=== PATIENT | female | born 1945 | race Caucasian/White ===

== ENCOUNTER 2022-04-23 13:24 | Outpatient (REF) | payer MEDICARE, SELFPAY ==
--- NOTE | 2022-04-23 11:22 | SKI_PTH ---
PATIENT: Charlie Tran LOC: [facility] U#:[id number] AGE/SX: 76/F ROOM: RE04/23/[address]: LUCIA Evans : 1945 BED: DIS: 04/23/2022 SPEC #: [id number] RECD: 04/23/22 16:03 STATUS: ZEV REQ #: [id number] SEBASTIEN: 04/23/22 11:[address]: Keith Villasenor DEPT: Surgical Specimen RECD BY: Gema Persaud ENTERED: 04/23/22 16:04 SP TYPE: SKI OTHR DR: Carmen Rogers Tissues: 1 - SKIN BIOPSY(SHAVE/PUNCH) Procedures: SKIN LEVEL 4 Comments: [id number]
--- OUTSIDE RECORDS SUMMARY | 2022-04-23 13:33 | XMS_ITS | Continuity of Care Document ---
:1945 Author Organization [facility] Address [address] [place] [address] Support Name Relationship Address Phone Pcp-Md Yan Primary Care Provider Unavailable Ever Nye Attending Provider [address] [place] [address] [facility] [place] [address] Allergies, Adverse Reactions, Alerts No allergy information available. Medications No medication information available. Problem List No problem information available. Procedures No known history of procedures. Relevant Diagnostic Tests and/or Laboratory Data No known relevant diagnostic tests, laboratory data, and/or discharge summary. Chief Complaint and Reason for Visit Encounter Admit Date Chief Complaint Reason for Visit Departed Referred August 31, 2019 2:50pm REFERRED- [facility] Hospital Discharge Instructions No known hospital discharge instructions. Encounters Encounter Facility Location Admit/Visit Discharge/Departure Atte nding Date Date Provider Departed . Cardiology August 31, August 31, 2019 Ever Fam Referred [facility] 2019 2:50pm 2:51pm Medical Center Functional Status No known functional status. Immunizations No known immunizations. Payers Payer Name Policy Type Covered Covered Libertarian Relationship Subscriber Subscriber Id Libertarian Id AARP Commercial SUEANNE [id number] Self / Same As SUEANNE 07 [id number] SUNG Patient SUNG Medicare Medicare SUEANNE [id number] Self / Same As SUEANNE [id number] A&B Primary SUNG Patient SUNG Self Pay Personal Payment (Madden - No Insurance) Plan of Care No Known Plan of Care Information Social History No known social history. Vital Signs No known vital signs results.
--- OUTSIDE RECORDS SUMMARY | 2022-04-23 13:34 | XMS_ITS | Continuity of Care Document ---
:1945 Author Organization [facility] Address [address] [place] [address] Phone Care Team Providers Name Role Phone Deb Alford Primary Care Provider Deb Alford Family Provider MD Ever Fam Attending Provider Chief Complaint and Reason for Visit Chief Complaint O/V Social History Smoking Status Status Start Date End Date Date of Observat ion Never smoked tobacco (finding) F ebruary 2019 1:07pm Additional Data Assigned Sex Female Problems Active Problems Medical Problem Onset Date Status Persistent atrial fibrillation Active Insurance Providers Guarantor Katrin Hdz Address [address] [facility] [address] Contact Info. Home Phone: Payer Policy Id Coverage Id Subscriber's Subscriber Effective Expi ration Name Id Date Date [facility] [id number] Katrin Tran [id number] Supplemental [employer] Medicare A&B [id number] Katrin Tran [id number] [place] Self Pay Self N/A Encounters Encounter Location(s) Arrival/Admit Date Discharge/Depart Date Provider(s) Departed [facility] February 19, 2022 February 19, 2022 1:06pm Carolyn Fam MD Clinical Medical 1:05pm Center-Cardiolog y Private
--- OUTSIDE RECORDS SUMMARY | 2022-04-23 13:34 | XMS_ITS | Encounter Summary ---
:1945 Author Care Team Providers Name Role Phone Deb Alford MD Primary Care Provider [phone] Carmen Rogers MD Primary Care Provider [phone] Ever Fam MD [place] Man [phone] Reason for Visit atrial fibrillation Assessment and Plan 1. Paroxysmal atrial fibrillation She has quite symptomatic paroxysmal at rial fibrillation despite flecainide. I first reviewed stroke risk and she has a CHADSVASc score of 6 so she should continue Eliquis. She had a TIA despite Eliqui s, which could easily have been atheroem bolic as cardioembolic, and aspirin was added to her Eliquis. Flecainide appears to have converted atr ial fibrillation to paroxysmal. She is disappointed that she is back in AF today and for the past 3 days. Her atrial fibrillation still appears relatively rare but has now recurred twice in the last four months with symptoms. We discu ssed options of rate control, increase f lecainide in an attempt to reduce AFib episodes, or catheter ablation. Given her symptoms and recurrence despite flecainide I recommend catheter ablation, and I d iscussed the risks of this procedure and gave her a handout. She is not yet ready to proceed with this and would like to continue to try treatment with flecainide. Therefore I will have her take 100 mg of flecainide this evening and then hankins ge her daily dose to 75 mg twice a day. She has a normal ejection fraction, good exercise capacity and no QRS widening at 107 beats per minute on today's EKG. I w arned her that if she continues to have symptoms or if the symptoms worsen she should not increase the dose and should contact me immediately. I asked her to call me if AFib does not resolve within one week and at that point we should readdre ss an atrial fibrillation ablation procedure. Likewise of atrial fibrillation continues to occur every 2-3 months or more I would more strongly recommend AFib abl ation procedure. She agrees to think abo ut it and will contact me if AFib episodes are more frequent. We discussed that if she progresses to persistent atrial fibrillation, success rates of both ablatio n and medications would start to decline significantly. Discussed restricting alcohol intake and aiming for 10-15 pound weight loss. ? electrocardiogram ? flecainide 50 mg tablet ? metoprolol tartrate 50 mg tablet 2. Essential hypertension Continue current medications as prescri bed. She says that home BPs generally 120s/70s which is at goal of < 130/80. L ow salt diet discussed. Mildly uncontrolled in office today but she admits to a grea t deal of stress. ? high blood pressure: care instruction s 3. Transient cerebral ischemia She had a TIA this spring despite takin g Eliquis. While there could be an atherosclerotic/ atheroembolic source, i ntensification of her anticoagulation regimen with the addition of low-dose aspirin to Eliquis is appropriate. She should continue high-dose atorvastatin. Discussion Note: None recorded. Plan of Care Reminders Provider Appointments Return to Office on or around Rajeev Oshea 02/19/2023 ? Established Patient 20 02/25/2023 10:40AM Jose Fam MD Lab None recorded. ? ? Referral None recorded. ? ? Procedures None recorded. ? ? Surgeries None recorded. ? ? Imaging Electrocardiogram 02/19/2022 In-House Ord er For [place] Provider Medications Name Start Date ? ? aspirin 81 mg tablet,delayed release ? Take 1 tablet every day by oral route. atorvastatin 80 mg tablet ? Take 1 tablet every day by oral route. chlorthalidone 25 mg tablet ? Take 1 tablet twice a day by oral route. curcumin (bulk) 100 % powder ? Taking 1 scoop orally once daily Eliquis 5 mg tablet ? Take 1 tablet twice a day by oral route. flecainide 50 mg tablet ? Take 1.5 tablets every 12 hours by oral route. levothyroxine 25 mcg tablet ? Take 1 tablet every day by oral route. losartan 100 mg tablet ? Take 1 tablet every day by oral route. metoprolol tartrate 100 mg tablet ? Take 0.5 tablets twice a day by oral route. omeprazole 20 mg capsule,delayed release ? Take 1 capsule every day by oral route as needed. Medications Administered None recorded. Vitals Height Weight BMI Blood Pressure 5 ft 6 in 204 lbs 32.9 kg/m2 140/90 mm[Hg] Results Lab Results None recorded. Allergies Code Code System Name Reaction Severity Onset NKDA ? ? ? Problems None recorded. Procedures Date Name Performed by ? 02/19/2022 Electrocardiogram In-House Order For Esme [place]aredes [place] [address] Vaccine List None recorded. Social History Tobacco Smoking Status Never Smoker Family History Relation Problem Onset Age of Age Notes Father Cerebrovascular accident (No Information) N/A (No Notes) Functional Status Unknown. Past Encounters 02/19/2022 Paroxysmal Atrial Fibrillation; [facility] l Hypertension; Transient Cerebral Ischemia Ever Fam MD: [address] [place] [phone], Ph. History of Present Illness Note: <div>She returns to EP clinic to follow up her persistent AF. She underwent cardioversion with flecainide initiation 09/24/19 but subsequently developed recurrent AF symptoms. She had paroxysmal AF despite the flecainide and when I saw her in 10/2019 we planned and AF ablation but due to the COVID-19 pandemic this was not performed. She has subsequenly had only rare episodes of AF.</div><div>She did suffer a TIA 10/2021 and was evaluated and worked up at [facility]. Aspirin was added to her Eliquis which she was taking at the time of the stroke.</div><div>No recurrent TIA/stroke symptoms. No bleeding issues on Eliquis/aspirin.</div><div>She had had AF at the time of her TIA in 10/2021 (lasted 7 days) and no recurrence until 3 days ago and she remains in AF today. Prior to October she had gone 6 months without any AF symptoms. She states that she is aware of her AF. SHe feels tired and fatigued, but can do all her regular activities, caring for her horses.</div><div>No lightheadedness, dizziness or syncope.</div><div>No dyspnea or chest pain. 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
</div><div>
</div> Review of Systems ? General Adult ROS Reported By: Patient Constitutional: Constitutional: no fever, no significant weight gain, no significant weight loss Respiratory: Respiratory: no shortness of breath Cardiovascular: Cardiovascular: no chest ramírez n, no arm pain on exertion, no shortness of breath when wal robert, no shortness of breath when lying down Gastrointestinal: GI: no blood in stools Genitourinary: Genitourinary: no hematuria Hematologic/Lymphatic: Hematologic/Lymphatic no eas y bruising Physical Exam ? ASHLEY Cardio basic Reported By: Patient Basic Cardio PE: General Appearance overweigh t. HEENT: no bruit. Lungs: clear to auscultation. Cardio: JVP < 6, s1 normal, s2 normal, no murmurs, no gallops, irregular rhythm. E xtremities: no edema, pulses 2+
--- OUTSIDE RECORDS SUMMARY | 2022-04-23 13:34 | XMS_ITS | Encounter Summary ---
:1945 Author Organization [facility] Address [address] [place] [address] Care Team Providers Name Role Phone Carmen Rogers MD Primary Care Provider Encounter Details Date Type Department Care Team Description 01/26/2022 Lab Requisition [facility] Tyrese Traylor for other Pathology & A, DO general examination Laboratory Medicine - [address], [place] [address] [facility] [place], [place] [address] Social History Tobacco Use Types Packs/Day Years Used Date Never Assessed Sex Assigned at Date Recorded Not on file documented as of this encounter Plan of Treatment Not on filedocumented as of this encounter Procedures Procedure Name Priority Date/Time Associated Diagnosis Comme nts SURGICAL PATHOLOGY Today 01/26/2022 11:10 Resul ts for this EDT procedure are i n the results section. documented in this encounter Results SURGICAL PATHOLOGY (01/26/2022 11:10 EDT) Note to Patient The following [facility] MEDICAL pathology results have CENTER been interpreted by LABORATORY your pathologist and SERVICES may be available to you before your health provider has had the opportunity to review them. Please allow time for your provider to receive these results and explore management options, if applicable. Final Diagnosis A. SKIN OF EAR, LEFT, PUNCH BIOPSY: [facility] MEDICAL - Squamous cell carcinoma in situ. CENTER - Lesion arising in association with actinic keratosis . LABORATORY - Follicular involvement not identified. 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 Attestation By the signature below, [facility] MEDICAL Elec tronically the attending physician CENTER sign ed by Sen, certifies that they LABORATORY Lucita Hylton MD on have 1) personally SERVICES 01/28/2022 at 0915 conducted a gross and/or microscopic examination of the described specimen(s), and/or personally interpreted the results of laboratory testing of the described specimen(s), and 2) personally rendered or confirmed the above diagnosis. Microscopic The stratum corneum is [facility] MEDICAL Description thickened by CENTER orthokeratosis and LABORATORY parakeratosis. The SERVICES epidermis is of variable thickness with areas of relative hyperplasia. The keratinocytes show a variable degree of nuclear atypia that focally involves the full thickness of the epidermis. There is nuclear enlargement, dispolarity and overlap. Mitotic figures are noted in superficial layers of the epidermis. The dermis is marked by solar elastosis, vascular ectasia, and a lymphohistiocytic infiltrate. Clinical History Skin lesion Lt ear [facility] Gross Description A. [facility] MEDICAL Received in formalin blanca d with proper patient identification (initials A, S) and not otherwise specified is a punch biopsy of pale white skin (0.4 cm in diameter and 0.3 cm in thickness). The cutane CENTER ous surface is scaly and slightly umbilicated. S ubmitted intact in A1. LABORATORY SERVICES CRYSTAL MONTOYA 01/27/2022 11:42 Performing Lab [facility] Scanned Images [facility] Specimen Tissue - Skin (tissue) specimen (specime n) Performing Organization Address City/State/ZIP Code Phon e Number [facility] [address] [place] [address] SERVICES documented in this encounter Visit Diagnoses Diagnosis Encounter for other general examination documented in this encounter Care Teams Spectroscopist Relationship Specialty Start Date End Date Carmen Rogers MD PCP - General 12/13/[address] [place] [id number] documented as of this encounter
--- OUTSIDE RECORDS SUMMARY | 2022-04-23 13:34 | XMS_ITS | Continuity of Care Document ---
:1945 Author Organization [facility] Address [address] [place] [address] Support Name Relationship Address Phone Pcp-Md Yan Family Provider Unavailable Unavailable Ever Fam Attending Provider [address] [facility] [phone] [facility] [address] [place] [address] Deb Alford Primary Care Provider [address] [phone] [place] [address] Allergies, Adverse Reactions, Alerts No allergy information available. Medications No medication information available. Problem List Active Problems Medical Problem Onset Date Status Persistent atrial fibrillation Active Procedures Procedure Date Status EKG Electrocardiogram October 19, 2019 completed Cardiac Exercise Stress Test October 19, 2019 completed Relevant Diagnostic Tests and/or Laboratory Data No known relevant diagnostic tests, laboratory data, and/or discharge summary. Chief Complaint and Reason for Visit Encounter Admit Date Chief Complaint Reason for Visit Departed Referred October 19, 2019 1:25pm F/U Hospital Discharge Instructions No known hospital discharge instructions. Encounters Encounter Facility Location Admit/Visit Discharge/Departure Atte nding Date Date Provider Departed St. Cardiology October 19, 2019 October 19, 2019 1:26pm Ever Oliveros [facility] 1:25pm Medical Center Departed St. Ep Lab September 24September 24, 2019 Ever Fam Surgical Day [facility] 2020 7:52am [facility] Functional Status No known functional status. Immunizations No known immunizations. Payers Payer Name Policy Type Covered Covered Republican Relationship Subscriber Subscriber Id Republican Id AARP Commercial SUEANNE [id number] Self / Same As SUEANNE 07 [id number] SUNG ALMARAZ Medicare Medicare SUEANNE [id number] Self / Same As SUEANNE [id number] A&B Primary ARNSANJUANITA Patient SUNG Self Pay Personal Payment (Madden - No Insurance) Plan of Care No Known Plan of Care Information Social History Query Response Start Date Stop Date Smoking Status Never smoker Vital Signs No known vital signs results.
--- OUTSIDE RECORDS SUMMARY | 2022-04-23 13:34 | XMS_ITS | Continuity of Care Document ---
:1945 Author Organization [facility] Address [address] [place] [address] Phone Support Name Relationship Address Phone SILVER LAIRD Sister UNKNOWN UNK, UN UNK Pcp-Md Yan Family Provider Unavailable Unavailable Ever Fam Attending Provider [address] [place] [address] [place] [address] Deb Alford Primary Care Provider [address] [place] [address] Allergies, Adverse Reactions, Alerts No allergy information available. Medications No medication information available. Problems Active Problems Medical Problem Onset Date Status Persistent atrial fibrillation Active Procedures Procedure Date Performed Status EKG Electrocardiogram October 19, 2019 completed Cardiac Exercise Stress Test October 19, 2019 completed Relevant Diagnostic Tests and/or Laboratory Data Diagnostic Imaging Reports Report Dictated Date/Time Dictated By Status Electrophysiology Report September 24, 2019 8:19am Ever Fam MD completed [facility] at [address] [id number] Patient Name: Katrin Cox [facility] al Record#: [id number] Address: [facility] JONATHAN GOEL City/State/Zip: [place] [address]: Ever sequeira MD Insurance: Medicare A&B /Age/Sex: 1945/74/F AARP Admit/Reg Date: 09/24/[address]: Kitty Fam MD Location: [facility].EP[facility]/ PCP: PcpMd Ronald Date of Service: 09/24/19 Order (s): EP Electrophysiology Order CPT Code: Report Number: [id number] Reason for Exam: AFIB Cardioversion Report Demographics Patient Name Marc fitch Female Date of 1945 Age 74 year(s ) EMR Number [id number] Account Number SE [id number] EP [employer] Ever Fam MD Date of Study 09/24/2019 Referring Physician(s) No PCP Procedure Procedure Type Cardioversion:External Cardioversion Indications Atrial fibrillation - persistent. Clinical Presentation Mrs. Almaraz is a 74 yo female patient w ho has persistent atrial fibrillation; patient was cardioverted back in June 2018 and felt much better with return to sinus rhythm. she has been on Eliquis and metoprolol since then. Here lately however patient experienced recurrence of her aFib and she noticed rapid heart rates on he r Cirrus Insight watch. She is symptomatic with palpitations and shortness of bear th. She is here today for a repeat cardioversion, this time however with a ddition of flecainide to increase her chances of maintaining sinus rhythm. Sh e has been adequately anticoagulated with eliquis. Procedure Description The patient was sedated with incrementa l IV Midazolam (Versed) and Sublimaze (Fentanyl). A total of 4 mg of IV midaz olam and 50 mcg of IV fentanyl were given. Using anterior posterior paddles , cardioversion proved successful with a 300J joule synchronized shock an d the patient's rhythm was converted to sinus. The patient was dismissed whe n fully awake. Conclusions Non-invasive/Misc. Summary Summary Successful cardioversion with return to sinus rhythm. Recommendations Patient will be discharged home once fu lly recovered from sedation. Continue flecainide BID dosing until follow up [place] Fam. Complications No procedural complications. Cardioversion Data Result The Cardioversion procedure was success ful. - DOUG procedure was not performed prior to the cardioversion procedure. Cardioversion attempts + +--------+--------+-------- -+---------+---------+--------+--------- --+--------- + !Pre-rhythm !Pre-rate!Shock !Impedance! Current !Patch !Waveform!Post-rhythm!Post-rate ! ! !(bpm) !(joules)!(ohms) !(amperes)!Po sition ! ! !(bpm) ! +-- +--------+--------+---------+- --------+---------+--------+ + --------- + !Atrial !85 !300 ! ! !Anterior ! !Perlita l !65 ! !fibrillation! ! ! ! !- ! !sinus ! ! ! ! ! ! ! !Posterior! !rhythm ! ! + +--------+--------+------- - -+---------+---------+--------+--------- --+--------- + Signatures Admission Data Admission Date: 09/24/2019 Admission Ti me: 07:52 Hospital Status:Outpatient. Procedure Data Procedure Date:09/24/2019Start:08:19 Dictated By: Ever Fam MD 09/24/19 081 9 Signed By: Ever Fam MD 09/24/19 1520 TD/TT: 09/24/19 0819Tech: HAL cc: YESICA; HAL* Ever Fam MD; Pcp-Md Yan Chief Complaint and Reason for Visit Chief Complaint F/U Encounters Encounter Location(s) Arrival/Admit Date Discharge/Depart Date Provider(s) Departed [facility] September 24, September 24, 2019 Jose Fam MD Surgical Day Medical 2019 7:52am Care Center-Ep Lab Departed [facility] October 19, 2019 October 19, 2019 Ever davis MD Referred Medical 1:25pm 1:26pm Center-Cardiolog y Private Assessments No Assessments Information Available Functional Status No Functional Status information available Goals Goals may be documented in an alternate section. Mental Status No Mental Status Information Available Medical Equipment No Medical Equipment Information available Insurance Providers Guarantor [facility]az [facility] Address [address] [place], [place] [address]R [facility] [address] Contact Info. Home Phone: Payer Policy Id Coverage Id Subscriber's Subscriber Id Effective E xpiration Name Date Date [facility] [id number] SONIA ALMARAZ [id number] Medicare [id number] SONIA ALMARAZ [id number] A&B Self Pay Self N/A Social History Smoking Status Status Date of Observation Never smoked tobacco (finding) September 24, 2019 1:0 7pm Assigned Sex Female
--- OUTSIDE RECORDS SUMMARY | 2022-04-23 13:34 | XMS_ITS | Clinical Summary ---
:1945 Author Organization [facility] Address [address] [place] [address] Care Team Providers Name Role Phone Carmen Rogers MD Primary Care Provider Encounters Date Type Specialty Care Team Description 01/26/2022 Lab Requisition Clinical Laboratory Tyrese Traylor for other A, DO general examina tion from Last 3 Months Social History Tobacco Use Types Packs/Day Years Used Date Never Assessed Sex Assigned at Date Recorded Not on file Plan of Treatment Health Maintenance Due Date Last Done Comments Hepatitis C Screen 1945 COVID-19 Vaccine (#1) 1949 Fall Risk Screening 2009 Procedures Procedure Name Priority Date/Time Associated Diagnosis Comme nts SURGICAL PATHOLOGY Today 01/26/2022 11:10 Resul ts for this EDT procedure are i n the results section. from Last 3 Months Results SURGICAL PATHOLOGY (01/26/2022 11:10 EDT) Note to Patient The following [facility] MEDICAL pathology results have CENTER been interpreted by LABORATORY your pathologist and SERVICES may be available to you before your health provider has had the opportunity to review them. Please allow time for your provider to receive these results and explore management options, if applicable. Final Diagnosis A. SKIN OF EAR, LEFT, PUNCH BIOPSY: UV M MEDICAL - Squamous cell carcinoma in situ. CENTER - Lesion arising in association with actinic keratosis . LABORATORY - Follicular involvement not identified. 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 Attestation By the signature below, [facility] MEDICAL Elec tronically the attending physician CENTER sign ed by Sen, certifies that they LABORATORY Lucita Hylton MD on have 1) personally SERVICES 01/28/2022 at 0915 conducted a gross and/or microscopic examination of the described specimen(s), and/or personally interpreted the results of laboratory testing of the described specimen(s), and 2) personally rendered or confirmed the above diagnosis. Microscopic The stratum corneum is [facility] MEDICAL Description thickened by CENTER orthokeratosis [...] Clinical History Skin lesion Lt ear [facility] LABORATORY SERVICES Gross Description A. [facility] MEDICAL Received in formalin blanca d with proper patient identification (initials A, S) and not otherwise specified is a punch biopsy of pale white skin (0.4 cm in diameter and 0.3 cm in thickness). The cutane CENTER ous surface is scaly and slightly umbilicated. S ubmitted intact in A1. LABORATORY SERVICES CRYSTAL MONTOYA 01/27/2022 11:42 Performing Lab [facility] LABORATORY SERVICES Scanned Images [facility] LABORAT[facility] SERVICES Specimen Tissue - Skin (tissue) specimen (specime n) Performing Organization Address City/State/ZIP Code Phon e Number [facility] [address] [place] [address] SERVICES from Last 3 Months Insurance Payer Benefit Plan Subscriber ID Effective Phone Address Typ e / Group Dates MEDICARE MEDICARE A/B [id number] 2009-Pres [address] ent [id number] [place] [address] [facility] [id number] 2021-Pres [phone] [address] Comm ercial [facility] ent [id number] [place] [address] Katrin Tran Personal/Family Self 1945 [address] [place] [address] Katrin Tran Personal/Family Self 1945 [address] [place] [address] Katrin Tran Personal/Family Self 1945 [address] ([address] [place] [address] Katrin Tran Personal/Family Self 1945 [address] ([address] [address] Care Teams 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
--- OUTSIDE RECORDS SUMMARY | 2022-04-23 13:34 | XMS_ITS ---
:1945 Author Care Team Providers Name Role Phone LYSSA FAM MD [employer] [phone] JOELLEN SUGGS MD Primary Care Provider [phone] RAND RUBIN MD Primary Care Provider [phone] Allergies Code Code System Name Reaction Severity Status Onset NKDA ? Medications Name Status Start Date Stop Date ? ? aspirin 81 mg tablet,delayed release Active ? Not available Take 1 tablet every day by oral route. atorvastatin 80 mg tablet Active ? Not av ailable Take 1 tablet every day by oral route. chlorthalidone 25 mg tablet Active ? Not available Take 1 tablet twice a day by oral route. curcumin (bulk) 100 % powder Active ? Not available Taking 1 scoop orally once daily Eliquis 5 mg tablet Active ? Not availabl e Take 1 tablet twice a day by oral route. flecainide 50 mg tablet Active ? Not avai lable Take 1.5 tablets every 12 hours by oral route. levothyroxine 25 mcg tablet Active ? Not available Take 1 tablet every day by oral route. losartan 100 mg tablet Active ? Not avail able Take 1 tablet every day by oral route. metoprolol tartrate 100 mg tablet Active ? Not available Take 0.5 tablets twice a day by oral route. metoprolol tartrate 50 mg tablet Active ? Not available Take 1 tablet twice a day by oral route. omeprazole 20 mg capsule,delayed release Active ? Not available Take 1 capsule every day by oral route as needed. Problems None recorded. Procedures Date Name Performed by ? 08/31/2019 Electrocardiogram In-House Order For Esme paredes Provider For Internal Use Onl y 08/31/2019 Exercise Stress Test [facility] Radiology Dept [address] [place] [address] (Work Place) 10/19/2019 Electrocardiogram In[place] [id number] 02/13/2021 Electrocardiogram In-House Order [place] [id number] 02/19/2022 Electrocardiogram [place] [id number] Results Lab Results Date Name Specimen Result Interpretation Description Value Range Status Address ? ? Electrocardiogram ? No observation recorded. ? ? ? In-House Order For Melyssa Pr ovider: For Internal U se Only ? Electrocardiogram ? No observation recorded. ? ? ? In-House Order For Melyssa Pr ovider: For Internal U se Only Past Encounters 02/19/2022 Paroxysmal Atrial Fibrillation; [facility] Hypertension; Transient Cerebral Ischemia Lyssa Fam MD: [address] [place] [address], Ph. 02/13/2021 Paroxysmal Atrial Fibrillation; [facility] Hypertension Lyssa Fam MD: [address] [place] [address], Ph. Social History Tobacco Smoking Status Never Smoker Vaccine List None recorded. Plan of Care Reminders Provider Appointments None recorded. ? ? Lab None recorded. ? ? Referral None recorded. ? ? Procedures None recorded. ? ? Surgeries None recorded. ? ? Imaging None recorded. ? ? Vitals 02/19/2022 01:20PM Established Patient 20 Height Weight BMI Blood Pressure 66 in 203 lbs 16 oz 32.9 kg/m2 140/90 mm[Hg] 02/13/2021 01:00PM Established Patient 20 Height Weight BMI Blood Pressure 66 in 210 lbs 33.9 kg/m2 (1) 136/94 mm[H g] (2) 132/82 mm[Hg ] 10/19/2019 02:00PM Established Patient 20 Height Weight BMI Blood Pressure 66 in 199 lbs 16 oz 32.3 kg/m2 (1) 147/57 mm[H g] (2) 138/80 mm[Hg ] 08/31/2019 11:20AM New Patient 40 Height Weight BMI Blood Pressure 66 in 199 lbs 16 oz 32.3 kg/m2 130/83 mm[Hg]
== END 2022-04-23 13:25 | disposition home or self-care (01) ==
LOC: LBN 13:24
PROVIDERS: PCP Internal Medicine; Visit Provider Physician Assistant
DX: H61.021 Chronic perichondritis of right external ear (principal); Z86.008 Personal history of in-situ neoplasm of other site
CPT/HCPCS: 88305

== ENCOUNTER 2025-02-27 16:18 | Inpatient (IN) | payer MEDICARE, SELFPAY ==
[2025-02-27] VITALS (74 sets, daily range): BP systolic 137–206; BP diastolic 51–86; PULSE 38–78; RESP 13–26; TEMP 36.3–36.9; O2SAT 94–97
--- NOTE | 2025-02-27 16:15 | RT.EKG_ITS ---
APPROVED REPORT Exam: Resting ECG Reason for Exam: Slurred Speech Patient Location: E HR:39 bpm ECG Measurements Heart Rate 39 AXIS MA [id number] P [id number] QRSd 104 QRS -26 QT 469 T 111 QTc 380 Conclusion Junctional rhythm...absent P waves, slow V-rate Inferior infarct, old...Q >35mS, II III aVF Consider anterior infarct...Q >30mS in V2-V5 Nonspecific T abnormalities, lateral leads...T <-0.10mV, I aVL V5 V6
--- NOTE | 2025-02-27 16:33 | W.ED.GENAD ---
Discharge Plan Disposition Patient Disposition: Admit to [facility] Condition: Improving Discharge Details Clinical Impression: Bradycardia, Syncope, PAF (paroxysmal atrial fibrillation), Hypomagnesemia, Acute renal failure Admit Date/Time: 02/27/25 22:17 Admit Provider: Douglas Schmid Attending Provider: Douglas Schmid Primary Care Provider: Carmen Rogers ED Provider: Shahid Barillas Discharge Data Discharge Date/Time-TO BE ENTERED AT DEPARTURE: 02/27/25 22:50 HPI General Date/Time Provider Initiated Documentation: 02/27/25 16:32. HPI Narrative: Patient presents emergency department brought in by the friend after she had an episode 1030 this morning where she was in a store this as she felt dizzy very weak and almost had a syncopal episode. She refused EMS to transport her to the hospital but her friends convinced her to come here for she has noted that her pulse has been low. Patient has a history of A-fib is supposed to undergo an ablation next month and is anticoagulated. Related Data Home Medications ?Medication ?Instructions ?Recorded ?Confirmed apixaban 5 mg tablet (Eliquis) 5 mg PO BID 02/27/25 02/27/25 atorvastatin 80 mg tablet 80 mg PO QPM 02/27/25 02/27/25 chlorthalidone 50 mg tablet 25 mg PO BID 02/27/25 02/27/25 flecainide 50 mg tablet 75 mg PO BID 02/27/25 02/27/25 levothyroxine 50 mcg tablet 50 mcg PO DAILY 02/27/25 02/27/25 losartan 100 mg tablet 100 mg PO DAILY 02/27/25 02/27/25 metoprolol tartrate 25 mg tablet 25 mg PO BID 02/27/25 02/27/25 omeprazole 20 mg capsule,delayed 20 mg PO DAILY 02/27/25 02/27/25 release zolpidem 10 mg tablet 10 mg PO QHS PRN 02/27/25 02/27/25 Allergies Allergy/AdvReac Type Severity Reaction Status Date / Time No Known Allergies Allergy Verified 02/27/25 17:27 General Stated Complaint: AMS/LOC FROYLAN: 3 Review of Systems Narrative: Review of Systems: Constitutional: No fevers, chills, sweats Eye: No recent visual problems ENT: No ear pain, nasal congestion, sore throat Respiratory: No shortness of breath, cough Cardiovascular: No Chest pain, palpitations, syncope Gastrointestinal: No nausea, vomiting, diarrhea Genitourinary: No hematuria Checo/Lymph: Negative for bruising tendency, swollen lymph glands Endocrine: Negative for excessive thirst, excessive hunger Musculoskeletal: No back pain, neck pain, joint pain, muscle pain, decreased range of motion Integumentary: No rash, pruritus, abrasions Neurologic: Alert & oriented X 4 Psychiatric: No anxiety, depression Exam Narrative Exam Narrative: Exam; vitals signs as reported above normal Constitutional; In no acute distress, afebrile General: cooperative, healthy appearing, comfortable and no acute distress HEENT: Head: normal to inspection, no palpable skull fracture and normocephalic atraumatic Eyes: : appearance normal, both eyes and all related structures EOM intact bilaterally Pupils: PERRL : conjunctiva normal Direct ophthalmoscopy: normal light reflex, normal conjunctiva, normal visual acuity Ears: Normal TM, normal external canal Nose: normal no rhinorreha Neck no JVD, supple non tender Neck: normal visual inspection, full ROM and no lymphadenopathy Chest: normal inspection of the chest Respiratory : normal respiratory effort and able to speak in complete sentences no wheezing no rales Cardio Rate: Bradycardic irregular regular rhythm normal heart sounds S1 and S2 no murmurs, gallops, or rubs GI : normal to inspection, normal bowel sounds, soft, non tender, non distended, no organomegaly Back/Spine/ no CVA tenderness Thoracic/Lumbar Spine: no tenderness or deformities Skin no rashes or lesions Neuro: patient alert oriented x 4 and no meningeal signs, Cranial Nerves: CN's II-XI intact bilaterally, Cognition: normal cognition, Speech: speech normal, Gait: normal gait, Depp tendon reflexes normal 2+ muscle strength 5/5 bilaterally Extremities, no edema, full range of motion, normal strength Course Vital Signs Vital signs: Vital Signs Temperature 36.9 C 02/27/25 16:21 Pulse 45 L 02/27/25 16:21 Respiratory Rate 18 02/27/25 16:21 Blood Pressure 137/75 02/27/25 16:21 Pulse Oximetry 96 02/27/25 16:21 Temperature 36.9 C 02/27/25 16:21 Temperature Source Oral 02/27/25 16:21 Pulse 45 L 02/27/25 16:21 Respiratory Rate 18 02/27/25 16:21 Blood Pressure 137/75 02/27/25 16:21 Pulse Oximetry 96 02/27/25 16:21 Oxygen Delivery Method Room Air 02/27/25 16:21 Oxygen Flow Rate 0 02/27/25 16:21 Pain Level 0 02/27/25 16:21 Medical Decision Making MDM: Summary: Patient presents to the emergency department after she was seen by EMS in the morning for an episode of presyncope and later found that her pulse was low and decided come to the emergency department. When she came to the ED her pulse was 39 with a blood pressure 130/70. EKG shows a junctional rhythm at a rate of 39 patient received IV hydration and labs and will place on telemetry and at point it looks like she was having third-degree AV block but then reverted back to normal sinus rhythm after 1 L of normal saline. Patient has a history of atrial fibrillation and at times has rapid A-fib and after obtaining her medication we saw that she takes flecainide and metoprolol which could have been the culprit of this bradycardia arrhythmia. I spoke with her doctors in [place] but they were not sure for her primary marble cleaner was out of town called [facility] spoke with cardiology Dr. Gavin who states that if the patient has improved to monitor here and if needed she will be transferred but they recommend stopping the flecainide and metoprolol at this time patient now feels better and she will be admitted to the hospital CT scan that was done which is negative the only abnormalities her BUN is 54 and her creatinine is 2.0 this probably also is due to dehydration Data Review Analysis All the data on this patient was reviewed by me including laboratory and imaging studies as well as bedside studies performed by me Independent review of Studies Imaging CT head was negative for stroke Lab: Labs as reported above show an elevated BUN to creatinine ratio Risk Stratification: Patient with a junctional rhythm dehydration and acute renal failure who will need to be admitted to the hospital for further monitoring Differential Diagnosis: 1. Bradycardia arrhythmia 2. Third-degree AV block 3. Syncope 4. CVA 5. Acute kidney injury Consultants: Consulted with Dr. Merino and a doctor at [facility] as well as the hospitalist will admit the patient to the hospital Shared disposition: Patient is since need to be admitted and will do accordingly Impression: Medical Records Medical records reviewed: Yes I reviewed the patient's medical records. Lab Data Lab results reviewed: Yes I reviewed the patient's lab results. ECG Data Attestation: I personally reviewed and interpreted this ECG (s) as follows: Prior ECG tracings: available for review Interpretation: Junctional rhythm heart rate [address]-T changes Quality:SDOH Health Related Social Needs: Health related social needs education Health related social needs details not applicable at this time. 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
[2025-02-27 16:55] LABS: Abs Immature Grans 0.09 10^3/uL (0.0-0.06); HCT 41.2 % (36.0-46.0); HGB 13.2 g/dL (11.2-15.7); Immature Grans % 0.8 %; MCH 32.0 pg (27.0-33.0); MCHC 32.0 % (32.0-36.0); MCV 100 fL (80-95); MPV 10.1 fL (8.0-11.0); Platelet Count 252 10^3/uL (130-400); RBC 4.12 10^6/uL (3.93-5.22); RDW 12.9 % (11.7-14.6); RDW-SD 47.3 fL; WBC 10.79 10^3/uL (4.4-10.8)
[2025-02-27 17:13] LABS: ALT 36 U/L (14-59); AST 28 U/L (15-37); Albumin 3.6 g/dL (3.4-5.0); Alkaline Phosphatase 83 U/L (46-116); Anion Gap 16.4 mmol/L (3-11); BUN 55 mg/dL (7-18); Bilirubin, Total 0.4 mg/dL (0.2-1.0); CO2 20.6 mmol/L (21.0-32.0); Calcium 9.8 mg/dL (8.5-10.1); Chloride 103 mmol/L (98-107); Estimated GFR 20.96 (mL/min/1.73m2); Glucose 224 mg/dL (74-106); Magnesium 1.7 mg/dL (1.8-2.4); Potassium 3.8 mmol/L (3.5-5.1); Sodium 140 mmol/L (136-145); Total Protein 7.4 g/dL (6.4-8.2); Troponin I 16 ng/L (<or=51)
[2025-02-27] MEDS: Normal Saline 1,000 ML 1000 ML IV (17:42)
--- NOTE | 2025-02-27 18:00 | DI.CT_ITS ---
Exam(s) CT HEAD WO EXAM: CT HEAD WO CLINICAL HISTORY: presyncope. TECHNIQUE: Imaging Protocol: Axial computed tomography images with coronal and sagittal reformatted images were created and reviewed COMPARISON: No exams were available for comparison FINDINGS: There are no skull fractures. There is no fluid in the visualized paranasal sinuses. There is no evidence of intracranial hemorrhage, mass effect, or shift of midline structures. There are no extra-axial fluid collections. The ventricles are not enlarged or shifted and there is no blood within the ventricular system nor within the basal cisterns. There is some mild bilateral and symmetrical periventricular hypodensity consistent with chronic small vessel disease IMPRESSION: No acute intracranial findings on this noninfused CT scan of the brain. Bilateral small vessel white matter periventricular disease. No evidence of obvious acute territorial infarct. No hemorrhage. If clinically indicated follow-up MRI can be performed. Report called by myself to ER provider 02/27/2025 at 7:17 p.m. RADIATION DOSE DELIVERED: 931.81mGy.cm Total DLP DATA REPOSITORY: All CT scans at this facility are submitted to the National Radiology Data Registry (NRDR) Dose Index Registry (DIR) with the [employer] (ACR). RADIATION OPTIMIZATION: All CT scans at this facility use at least one of these dose optimization techniques: automated exposure control; mA and/or kV adjustment per patient size (includes targeted exams where dose is matched to clinical indication); or iterative reconstruction.
[2025-02-27 18:06] LABS: Troponin I 16 ng/L (<or=51)
--- NOTE | 2025-02-27 19:30 | RT.EKG_ITS ---
APPROVED REPORT Exam: Resting ECG Reason for Exam: nel Patient Location: E HR:61 bpm ECG Measurements Heart Rate 61 AXIS TX 97 P 0 QRSd 113 QRS -27 QT 492 T 103 QTc 494 Conclusion Sinus rhythm...normal P axis, V-rate 60- 99 Incomplete left bundle branch block...QRSd>110mS, terminal axis(-90,-1) Low voltage, precordial leads...precordial leads <1.0mV
[2025-02-27 20:13] LABS: Troponin I 17 ng/L (<or=51)
--- NOTE | 2025-02-27 20:59 | W.PM.HP.N ---
Date of service: 02/27/25 Time of Service: 20:59 Assessment and Plan Assessment and plan (1) Hypotension due to drugs: Start date: 02/27/25 Status: Acute Assessment and plan: This is an 79-year-old lady with recent onset of dizziness and near syncopal episode the day of presentation presenting with bradycardia and hypotension with paroxysmal atrial fibrillation and planned ablation in April of this year with [place] inspector materials and processes. She is symptomatic with her atrial fibrillation and with her recent episode she appeared to have junctional bradycardia in the ED. She did respond to fluids and her medications were held with a hypertensive response in the ED. She did receive 1 small dose of metoprolol and had recurrent bradycardia but not hypotension. She will be observed overnight trending troponins and software project engineer. She may need pacemaker. ZOLL pads are in place. Because of her persistent bradycardia into the 30s she was moved to the ICU level care. Metoprolol will be held along with flecainide and chlorthalidone. Echocardiogram will be updated. She is a full code. (2) Bradycardia: Start date: 02/27/25 Status: Acute Assessment and plan: Patient is having bradycardia secondary to her medications and there may be a conduction disorder though there is no true heart block. She now is in junctional bradycardia converting to sinus bradycardia off metoprolol entirely. Consult cardiology and her inspector materials and processes team in [place] as to need for immediate attention versus long-term potential for possible pacemaker. Also she needs her meds adjusted hoping not to allow paroxysmal atrial fibrillation and rapid response which may be problematic as well. (3) Hypomagnesemia: Start date: 02/28/25 Status: Acute Assessment and plan: Replete with IV magnesium and follow-up lab. (4) Acute hyperglycemia: Start date: 02/27/25 Status: Acute Assessment and plan: Patient has glucose measurements over 200 and will be on glucometer measurements before meals and at bedtime with sensitive sliding scale coverage while hospitalized. She has no history of diabetes. (5) PAF (paroxysmal atrial fibrillation): Status: Chronic Assessment and plan: Patient states that she has only 13 to 15% atrial fibrillation on her heart monitoring with her watch. She does have planned ablation in April of this year. She may need more immediate attention from her team in [place] with her present symptoms and bradycardia. (6) Hypothyroidism (acquired): Status: Chronic Assessment and plan: Continue outpatient supplement. This appears to be stable. (7) Hyperlipidemia: Status: Chronic Assessment and plan: Continue outpatient medical therapy. (8) HTN (hypertension): Status: Chronic Assessment and plan: Hold all of her medicines except for losartan which will be half dose. Gentle IV hydration has taken place. History of Present Illness History of Present Illness Chief Complaint: Dizziness and weakness with near syncopal episode. Narrative: This is an 79-year-old female patient who receives most of her cardiology care in [place] seen Dr. Schulz who is a inspector materials and processes. She has chronically been on metoprolol and flecainide with only rare atrial fibrillation which would have a heart rate in the 110-120 range by her watch and phone monitoring. She is very sensitive to her atrial fibrillation and it is scheduled for an ablation in April 2025. She had a near syncopal episode while shopping with her friend I did not want to be seen in the ED but was encouraged by her friend go to the emergency room for evaluation with patient arriving via EMS. She continued to have dizziness and in the ED was found to have a junctional bradycardia. She did have paroxysmal atrial fibrillation with a controlled rate and was not severely hypotensive but actually was hypertensive compared to her baseline. She was given the very small dose of Toprol tartrate just after being admitted to the floor and began to have severe bradycardia below 40 sometimes dipping below 30 without symptoms of hypotension while lying in bed but the patient could feel her heart skipping. She had no chest pain. She denied any peripheral edema. No true syncopal episodes but has felt slightly dizzy in the past. She was transferred to the ICU from the [facility] because of her persistent bradycardia. Her metoprolol, flecainide and chlorthalidone were held. The patient blood pressure was well-controlled on only a half dose of losartan. She was essentially asymptomatic except for her sensations of slow heart rate and skipped beats with one 5-second pause seen on the telemetry. Her troponins were negative and her EKGs were unrevealing for ischemia. Plans are to observe off medications to washout her flecainide and metoprolol especially. The patient did return from a junctional bradycardia to the sinus bradycardia. Her global marketing coordinator and inspector materials and processes should be contacted in the morning to discuss possible further evaluation at [facility] which is a closer facility for consideration of pacemaker if needed. Her other chronic medical problems appear to be stable with patient's TSH slightly suppressed with a normal free T4. She is a full code. Review of Systems Narrative: 13 point review of systems otherwise unrevealing or stable. 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 Social History Smoking/Tobacco Use Status: Never Smoking risk assessment performed?: Yes Alcohol Intake: current Alcohol Intake frequency: a few times a week Substance use type: does not use Housing: house Do you feel safe at home: Yes Do you feel safe in your relationship?: Yes Meds Allergies and Home Medications Allergies Allergy/AdvReac Type Severity Reaction Status Date / Time No Known Allergies Allergy Verified 02/27/25 17:27 Home Medications ?Medication ?Instructions ?Recorded ?Confirmed ?Type apixaban 5 mg tablet (Eliquis) 5 mg PO BID 02/27/25 02/27/25 History atorvastatin 80 mg tablet 80 mg PO QPM 02/27/25 02/27/25 History chlorthalidone 50 mg tablet 25 mg PO BID 02/27/25 02/27/25 History flecainide 50 mg tablet 75 mg PO BID 02/27/25 02/27/25 History levothyroxine 50 mcg tablet 50 mcg PO DAILY 02/27/25 02/27/25 History losartan 100 mg tablet 100 mg PO DAILY 02/27/25 02/27/25 History metoprolol tartrate 25 mg tablet 25 mg PO BID 02/27/25 02/27/25 History omeprazole 20 mg capsule,delayed 20 mg PO DAILY 02/27/25 02/27/25 History release zolpidem 10 mg tablet 10 mg PO QHS PRN 02/27/25 02/27/25 History Exam Narrative Exam Narrative: General: Patient appears appropriate for age, moderately obese, alert and oriented x 3 and in no acute distress. HEENT: Normocephalic, eyes with pupils equal and reactive to light symmetrically, extraocular movement intact and sclera anicteric. Oropharynx with moist mucosa and fair dentition. Neck: Supple without JVD. Back: Kyphotic without CVA tenderness. Lungs: Aeration and clear to auscultation and percussion with no focalizing rales or rhonchi. No expiratory wheeze. Breast: Exam deferred. Heart: Bradycardic rate with irregular rhythm, no appreciable murmur or gallop. Abdomen: Obese contour, soft and nontender to palpation with no palpable hepatosplenomegaly. Genitalia/rectal: Exam deferred. Extremities: Without clubbing, cyanosis or pitting edema. Good cap refill. Skin: Normal color, warm and dry. Neuro: Nerves II to XII gross intact, no focalized motor deficits or tremor. Psych: Normal affect and mood. No abnormal thought processes. Remote and recent memory intact. Results Imaging Imaging Studies: EXAM: CT HEAD WO CLINICAL HISTORY: presyncope. TECHNIQUE: Imaging Protocol: Axial computed tomography images with coronal and sagittal reformatted images were created and reviewed COMPARISON: No exams were available for comparison FINDINGS: There are no skull fractures. There is no fluid in the visualized paranasal sinuses. There is no evidence of intracranial hemorrhage, mass effect, or shift of midline structures. There are no extra-axial fluid collections. The ventricles are not enlarged or shifted and there is no blood within the ventricular system nor within the basal cisterns. There is some mild bilateral and symmetrical periventricular hypodensity consistent with chronic small vessel disease IMPRESSION: No acute intracranial findings on this noninfused CT scan of the brain. Bilateral small vessel white matter periventricular disease. No evidence of obvious acute territorial infarct. No hemorrhage. If clinically indicated follow-up MRI can be performed. Labs 02/28/25 06:21 02/28/25 06:21 Labs: Laboratory Results - last 24 hr 02/27/25 02/27/25 02/27/25 16:37 17:38 19:36 WBC 10.79 RBC 4.12 Hgb 13.2 Hct 41.2 MCV 100 H MCH 32.0 MCHC 32.0 RDW 12.9 Plt Count 252 MPV 10.1 Immature Gran % 0.8 Neutrophils % 74.4 Lymphocytes % 17.2 Monocytes % 6.5 Eosinophils % 0.7 Basophils % 0.4 Nucleated RBC % 0.0 Absolute Neutrophils 8.02 H Absolute Lymphocytes 1.86 Absolute Monocytes 0.70 Absolute Eosinophils 0.08 Absolute Basophils 0.04 Sodium 140 Potassium 3.8 Chloride 103 Carbon Dioxide 20.6 L Anion Gap 16.4 H BUN 55 H Creatinine 2.3 H Est GFR (CKD-EPI 2020) 20.96 Glucose 224 H Calcium 9.8 Magnesium 1.7 L Total Bilirubin 0.4 AST 28 ALT 36 Alkaline Phosphatase 83 Troponin I 16 16 17 Total Protein 7.4 Albumin 3.6 Last Vital Signs Temp 36.9 C 02/27/25 16:21 Pulse 57 L 02/27/25 20:31 Resp 16 02/27/25 20:31 BP 191/67 H 02/27/25 20:31 Pulse Ox 95 02/27/25 20:31 Time Spent Time spent with Patient: >75 minutes Time was spent: preparing to see the patient(eg.review tests), obtaining and/or reviewing separately otained hiistory, ordering medications,tests, procedures, indepentently interpreting results, counseling the patient and care coordination
--- NOTE | 2025-02-27 22:49 | W.PC.ACHO ---
Registration Status: REG ER Primary Language: Preferred Language: ED Information & Data Chief Complaint AMS/LOC 02/27/25 16:34 Triage Note pt woke this am feeling fine 02/27/25 16:21 pt states she thinks she might have passed out or had TIA pt states symptoms have resolved Most Recent Vital Signs Temperature 36.9 C 02/27/25 16:21 Temperature Source Oral 02/27/25 16:21 Pulse 52 L 02/27/25 22:02 Pulse 52 L 02/27/25 22:02 Respiratory Rate 19 02/27/25 22:02 Respiratory Effort Normal 02/27/25 16:37 Respiratory Depth Normal 02/27/25 16:37 Respiratory Pattern Normal 02/27/25 16:37 Blood Pressure 155/61 H 02/27/25 22:02 Blood Pressure Mean 93 02/27/25 22:02 Pulse Oximetry 96 02/27/25 22:02 Oxygen Delivery Method Room Air 02/27/25 16:21 Oxygen Flow Rate 0 02/27/25 16:21 Pain Level 0 02/27/25 16:21 Allergies No Known Allergies Allergy (Verified 02/27/25 17:27) IV IV Catheter Type [Right Peripheral IV Antecubital] IV Catheter Gauge [Right 18 Antecubital] Diagnostics 02/27/25 02/27/25 02/27/25 Range/Units 22:23 19:36 17:38 WBC (4.4-10.8) 10^3/uL RBC (3.93-5.22) 10^6/uL Hgb (11.2-15.7) g/dL Hct (36.0-46.0) % MCV (80-95) fL MCH (27.0-33.0) pg MCHC (32.0-36.0) % RDW (11.7-14.6) % Plt Count (130-400) 10^3/uL MPV (8.0-11.0) fL Immature Gran % % Neutrophils % % Lymphocytes % % Monocytes % % Eosinophils % % Basophils % % Nucleated RBC % (0.0-0.3) % Absolute Neutrophils (1.2-6.7) 10^3/uL Absolute Lymphocytes (1.2-3.4) 10^3/uL Absolute Monocytes (0.1-0.8) 10^3/uL Absolute Eosinophils (0.0-0.7) 10^3/uL Absolute Basophils (0.0-0.2) 10^3/uL Sodium (136-145) mmol/L Potassium (3.5-5.1) mmol/L Chloride (98-107) mmol/L Carbon Dioxide (21.0-32.0) mmol/L Anion Gap (3-11) mmol/L BUN (7-18) mg/dL Creatinine (0.55-1.02) mg/dL Est GFR (CKD-EPI 2020) (mL/min/1.73m2) Glucose (74-106) mg/dL Calcium (8.5-10.1) mg/dL Magnesium (1.8-2.4) mg/dL Total Bilirubin (0.2-1.0) mg/dL AST (15-37) U/L ALT (14-59) U/L Alkaline Phosphatase (46-116) U/L Troponin I 17 16 (<or=51) ng/L Total Protein (6.4-8.2) g/dL Albumin (3.4-5.0) g/dL COVID-19 Source Pending SARS-CoV-2 (PCR) Pending Influenza Type A (PCR) Pending Influenza Type B (PCR) Pending RSV (PCR) Pending 02/27/25 Range/Units 16:37 WBC 10.79 (4.4-10.8) 10^3/uL RBC 4.12 (3.93-5.22) 10^6/uL Hgb 13.2 (11.2-15.7) g/dL Hct 41.2 (36.0-46.0) % MCV 100 H (80-95) fL MCH 32.0 (27.0-33.0) pg MCHC 32.0 (32.0-36.0) % RDW 12.9 (11.7-14.6) % Plt Count 252 (130-400) 10^3/uL MPV 10.1 (8.0-11.0) fL Immature Gran % 0.8 % Neutrophils % 74.4 % Lymphocytes % 17.2 % Monocytes % 6.5 % Eosinophils % 0.7 % Basophils % 0.4 % Nucleated RBC % 0.0 (0.0-0.3) % Absolute Neutrophils 8.02 H (1.2-6.7) 10^3/uL Absolute Lymphocytes 1.86 (1.2-3.4) 10^3/uL Absolute Monocytes 0.70 (0.1-0.8) 10^3/uL Absolute Eosinophils 0.08 (0.0-0.7) 10^3/uL Absolute Basophils 0.04 (0.0-0.2) 10^3/uL Sodium 140 (136-145) mmol/L Potassium 3.8 (3.5-5.1) mmol/L Chloride 103 (98-107) mmol/L Carbon Dioxide 20.6 L (21.0-32.0) mmol/L Anion Gap 16.4 H (3-11) mmol/L BUN 55 H (7-18) mg/dL Creatinine 2.3 H (0.55-1.02) mg/dL Est GFR (CKD-EPI 2020) 20.96 (mL/min/1.73m2) Glucose 224 H (74-106) mg/dL Calcium 9.8 (8.5-10.1) mg/dL Magnesium 1.7 L (1.8-2.4) mg/dL Total Bilirubin 0.4 (0.2-1.0) mg/dL AST 28 (15-37) U/L ALT 36 (14-59) U/L Alkaline Phosphatase 83 (46-116) U/L Troponin I 16 (<or=51) ng/L Total Protein 7.4 (6.4-8.2) g/dL Albumin 3.6 (3.4-5.0) g/dL COVID-19 Source SARS-CoV-2 (PCR) Influenza Type A (PCR) Influenza Type B (PCR) RSV (PCR) Intake and Output - 24 Hour Total 02/27/25 16:18 thru 02/27/25 18:49 Intake Total 1000 Balance 1000 Weight 88.451 kg Intake: IV 1000 Falls Risk Assessment History of Falls No History 02/27/25 16:37 Contributing Factors No Factors 02/27/25 16:37 Ambulatory Aids Independent 02/27/25 16:37 Tubes/Lines None 02/27/25 16:37 Gait Evaluation No gait disturbance 02/27/25 16:37 Cognition No cognitive impairment 02/27/25 16:37 Fall Total Score 0 02/27/25 16:37 Level of Risk Standard/Low Risk 02/27/25 16:37 Problems (Last Reviewed 02/27/25 @ 16:34 by Shahid Barillas MD) Hypotension due to drugs (Acute) PAF (paroxysmal atrial fibrillation) (Chronic) HTN (hypertension) (Chronic) Hyperlipidemia (Chronic) Hypothyroidism (acquired) (Chronic) Bradycardia (Acute) v v v v v v v v v Sending and/or Receiving Nurses: Please use comment section below to note any information pertinent to the patient hand-off not included above. Information / Comments: Report taken from ED RN Brooks, Patient is AO, brought to ER w/ dizziness and weakness.prior to that she had near syncopal episode, slurred speech , refused to EMS. On assessment she had junctional rythm, denied of chest pain and SOB, converted to sinus nel. ambulates to toilet independently. Was given NS 1 L as bolus. has g.18 on rt. AC. All questions answered appropriately. Report received from:
[2025-02-27 23:15] LABS: COVID-19 PCR Negative (Negative); RSV PCR Negative (Negative)
[2025-02-27] MEDS: Metoprolol 12.5 MG TAB PO (23:33)
[2025-02-27] MEDS: Zolpidem 10 MG TAB PO (23:33)
[2025-02-28] VITALS (53 sets, daily range): BP systolic 108–167; BP diastolic 43–73; PULSE 29–66; RESP 11–25; TEMP 36–36.7; O2SAT 89–97
[2025-02-28] MEDS: Normal Saline Flush 10 ML SYR IVP ×2 (00:03→07:41)
[2025-02-28] MEDS: MAGNESIUM SULFATE 2 GM/50 ML BAG IV_INF (00:04)
[2025-02-28 00:26] LABS: TSH (W/Ref FT4) 2.04 uIU/mL (0.36-3.74)
--- NOTE | 2025-02-28 04:51 | W.PC.ACHO ---
Registration Status: ADM IN Primary Language: Preferred Language: ED Information & Data Chief Complaint AMS/LOC 02/27/25 16:34 Triage Note pt woke this am feeling fine 02/27/25 16:21 pt states she thinks she might have passed out or had TIA pt states symptoms have resolved Most Recent Vital Signs Temperature 36 C L 02/28/25 01:50 Temperature Source Temporal Artery Scan 02/28/25 01:50 Pulse 38 L 02/28/25 01:50 Pulse Rhythm Irregular 02/27/25 22:59 Pulse 57 L 02/27/25 22:46 Respiratory Rate 18 02/28/25 01:50 Respiratory Effort Normal 02/27/25 22:59 Respiratory Depth Normal 02/27/25 16:37 Respiratory Pattern Normal 02/27/25 16:37 Blood Pressure 124/66 02/28/25 01:50 Blood Pressure Mean 85 02/28/25 01:50 Pulse Oximetry 96 02/28/25 01:50 Oxygen Delivery Method Room Air 02/28/25 01:50 Oxygen Flow Rate 0 02/28/25 01:50 Pain Level 0 02/28/25 01:50 Allergies No Known Allergies Allergy (Verified 02/27/25 17:27) Active Medications Generic Name Dose Route Start Last Admin Trade Name Freq PRN Reason Stop Dose Admin Metoprolol Tartrate 12.5 mg 02/28/25 00:00 02/27/25 23:33 Metoprolol 12.5 Mg Tab PO 12.5 mg Q8H SEVEN Administration Sodium Chloride 0 ml 02/27/25 22:56 02/28/25 00:03 Normal Saline Flush 10 Ml Syr IVP 10 ml PRN PRN Administration Zolpidem Tartrate 10 mg 02/27/25 22:56 02/27/25 23:33 Zolpidem 10 Mg Tab PO 10 mg HS PRN PRN Administration IV IV Catheter Type [Right Saline Lock Antecubital] IV Catheter Gauge [Right 18 Antecubital] Diet Orders Category Date Time Status Diabetes Consistent CHO/Heart Healthy [DIET] Nutrition 02/28/25 Breakfast Active Diagnostics 02/28/25 02/27/25 02/27/25 Range/Units 05:35 22:23 19:36 WBC Pending (4.4-10.8) 10^3/uL RBC Pending (3.93-5.22) 10^6/uL Hgb Pending (11.2-15.7) g/dL Hct Pending (36.0-46.0) % MCV Pending (80-95) fL MCH Pending (27.0-33.0) pg MCHC Pending (32.0-36.0) % RDW Pending (11.7-14.6) % Plt Count Pending (130-400) 10^3/uL MPV Pending (8.0-11.0) fL Immature Gran % % Neutrophils % % Lymphocytes % % Monocytes % % Eosinophils % % Basophils % % Nucleated RBC % (0.0-0.3) % Absolute Neutrophils (1.2-6.7) 10^3/uL Absolute Lymphocytes (1.2-3.4) 10^3/uL Absolute Monocytes (0.1-0.8) 10^3/uL Absolute Eosinophils (0.0-0.7) 10^3/uL Absolute Basophils (0.0-0.2) 10^3/uL Sodium Pending (136-145) mmol/L Potassium Pending (3.5-5.1) mmol/L Chloride Pending (98-107) mmol/L Carbon Dioxide Pending (21.0-32.0) mmol/L Anion Gap Pending (3-11) mmol/L BUN Pending (7-18) mg/dL Creatinine Pending (0.55-1.02) mg/dL Est GFR (CKD-EPI 2020) Pending (mL/min/1.73m2) Glucose Pending (74-106) mg/dL Calcium Pending (8.5-10.1) mg/dL Magnesium Pending (1.8-2.4) mg/dL Total Bilirubin Pending (0.2-1.0) mg/dL AST Pending (15-37) U/L ALT Pending (14-59) U/L Alkaline Phosphatase Pending (46-116) U/L Troponin I 17 (<or=51) ng/L Total Protein Pending (6.4-8.2) g/dL Albumin Pending (3.4-5.0) g/dL TSH 2.04 (0.36-3.74) uIU/mL COVID-19 Source Nasopharynx SARS-CoV-2 (PCR) Negative (Negative) Influenza Type A (PCR) Negative (Negative) Influenza Type B (PCR) Negative (Negative) RSV (PCR) Negative (Negative) 02/27/25 02/27/25 Range/Units 17:38 16:37 WBC 10.79 (4.4-10.8) 10^3/uL RBC 4.12 (3.93-5.22) 10^6/uL Hgb 13.2 (11.2-15.7) g/dL Hct 41.2 (36.0-46.0) % MCV 100 H (80-95) fL MCH 32.0 (27.0-33.0) pg MCHC 32.0 (32.0-36.0) % RDW 12.9 (11.7-14.6) % Plt Count 252 (130-400) 10^3/uL MPV 10.1 (8.0-11.0) fL Immature Gran % 0.8 % Neutrophils % 74.4 % Lymphocytes % 17.2 % Monocytes % 6.5 % Eosinophils % 0.7 % Basophils % 0.4 % Nucleated RBC % 0.0 (0.0-0.3) % Absolute Neutrophils 8.02 H (1.2-6.7) 10^3/uL Absolute Lymphocytes 1.86 (1.2-3.4) 10^3/uL Absolute Monocytes 0.70 (0.1-0.8) 10^3/uL Absolute Eosinophils 0.08 (0.0-0.7) 10^3/uL Absolute Basophils 0.04 (0.0-0.2) 10^3/uL Sodium 140 (136-145) mmol/L Potassium 3.8 (3.5-5.1) mmol/L Chloride 103 (98-107) mmol/L Carbon Dioxide 20.6 L (21.0-32.0) mmol/L Anion Gap 16.4 H (3-11) mmol/L BUN 55 H (7-18) mg/dL Creatinine 2.3 H (0.55-1.02) mg/dL Est GFR (CKD-EPI 2020) 20.96 (mL/min/1.73m2) Glucose 224 H (74-106) mg/dL Calcium 9.8 (8.5-10.1) mg/dL Magnesium 1.7 L (1.8-2.4) mg/dL Total Bilirubin 0.4 (0.2-1.0) mg/dL AST 28 (15-37) U/L ALT 36 (14-59) U/L Alkaline Phosphatase 83 (46-116) U/L Troponin I 16 16 (<or=51) ng/L Total Protein 7.4 (6.4-8.2) g/dL Albumin 3.6 (3.4-5.0) g/dL TSH (0.36-3.74) uIU/mL COVID-19 Source SARS-CoV-2 (PCR) (Negative) Influenza Type A (PCR) (Negative) Influenza Type B (PCR) (Negative) RSV (PCR) (Negative) [id number] Documentation Fingerstick Glucose Start: 02/27/25 22:56 Freq: AC & HS Status: Active Protocol: Activity Type Activity Date Activity User E-sign Co-sign Detail Recorded Client Recorded Date Recorded By Document 02/27/25 23:06 ELLIOT GRIFFIN(5) [id number] 02/27/25 23:06 ELLIOT GRIFFIN(6) Intake and Output - 24 Hour Total 02/27/25 16:18 thru 02/27/25 23:43 Intake Total 2000 Output Total 100 Balance 1900 Weight 93.2 kg Intake: IV 1999 Output: Urine 100 Other: Urine Color Yellow Urine Appearance Clear Urine Odor Normal Falls Risk Assessment History of Falls Previous History 02/27/25 22:59 Contributing Factors Unstable,Impairments, 02/27/25 22:59 Medications Ambulatory Aids Independent 02/27/25 22:59 Tubes/Lines W/no contributing factors 02/27/25 22:59 Gait Evaluation W/no contributing factors 02/27/25 22:59 Cognition No cognitive impairment 02/27/25 22:59 Fall Total Score 44 02/27/25 22:59 Level of Risk Moderate Risk 02/27/25 22:59 Problems (Last Reviewed 02/27/25 @ 16:34 by Shahid Barillas MD) Hypomagnesemia (Acute) Hypotension due to drugs (Acute) PAF (paroxysmal atrial fibrillation) (Chronic) HTN (hypertension) (Chronic) Hyperlipidemia (Chronic) Hypothyroidism (acquired) (Chronic) Bradycardia (Acute) v v v v v v v v v Sending and/or Receiving Nurses: Please use comment section below to note any information pertinent to the patient hand-off not included above. Information / Comments: Transfer from [facility] for bradycardia in the 30's. Patient has pads on. Is A/O x3. Blood pressure stable. Patient denies weakness, or dizziness. Report received from: Josseline Hendrickson RN
[2025-02-28] MEDS: Levothyroxine 50 MCG TAB PO (06:51)
[2025-02-28 07:02] LABS: HCT 35.7 % (36.0-46.0); HGB 11.5 g/dL (11.2-15.7); MCH 31.9 pg (27.0-33.0); MCHC 32.2 % (32.0-36.0); MCV 99 fL (80-95); MPV 10.4 fL (8.0-11.0); Platelet Count 194 10^3/uL (130-400); RBC 3.61 10^6/uL (3.93-5.22); RDW 12.7 % (11.7-14.6); RDW-SD 45.5 fL; WBC 8.56 10^3/uL (4.4-10.8)
[2025-02-28 07:34] LABS: ALT 29 U/L (14-59); AST 26 U/L (15-37); Albumin 3.1 g/dL (3.4-5.0); Alkaline Phosphatase 69 U/L (46-116); Anion Gap 10.4 mmol/L (3-11); BUN 50 mg/dL (7-18); Bilirubin, Total 0.3 mg/dL (0.2-1.0); CO2 24.6 mmol/L (21.0-32.0); Calcium 9.2 mg/dL (8.5-10.1); Chloride 107 mmol/L (98-107); Estimated GFR 28.13 (mL/min/1.73m2); Glucose 139 mg/dL (74-106); Magnesium 2.4 mg/dL (1.8-2.4); Potassium 3.4 mmol/L (3.5-5.1); Sodium 142 mmol/L (136-145); Total Protein 6.2 g/dL (6.4-8.2)
[2025-02-28] MEDS: Apixaban 5 MG TAB PO (07:40)
[2025-02-28] MEDS: Omeprazole 20 MG CAPCR PO (07:41)
[2025-02-28 07:50] LABS: Troponin I 17 ng/L (<or=51)
[2025-02-28] MEDS: Insulin Aspart 300 UNITS/3 ML PEN SC (08:36)
--- NOTE | 2025-02-28 09:12 | INITIAL_ITS ---
Date of service: 02/28/25 Time of Service: 09:12 Care Management Initial Assmt Initial Assessment Reason for Hospitalization: hypotension and bradycardia Functional Status/Living Situation Patient Presentation: Zoraida was sitting up on the side of the bed when CM met with her. She was alert and oriented and engaged well with CM. Zoraida was admitted after a syncopal episode and was found to have bradycardia with a heart rate between 30 and 50. She is currently being closely monitored in the ICU. Dr. Ceja met with Zoraida and her sister Filemon and also spoke with her Fruit Raiser in [place]. She has been accepted in transfer to [facility] in [place] and a bed is available. The nursing cytotechnologist supervisor is working on securing transport. Zoraida lives in a single family home in [place]. Her sister Filemon lives next door. 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 She currently has about 60 animals. Zoraida had 2 children but one at age 39 from cancer. 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 She worked in [place] and relocated to [place] about 7 years ago. She is independnet at baseline and does not receive any community services. Town of Residence: [place] Resides with: Alone Significant Other/Family: Local Employment Status: Retired Instrumental Activities of Daily Living (ADLs): Independent Medications Medication Management: No Issues/Barriers identified Physical Functioning/Mobility Assistive Device: none Advance Directives Advance Directives: Do you have an Advance Directive: N , 22:54 AD On File at [facility]: N 04/23/22, 13:31 Date Asked 02/27/25 02/27/25, 16:40 AD Date Reviewed 02/27/25 02/27/25, 22:54 COLST On File at [facility] COLST Date Scanned Code Status Resuscitation Status Full Code Portal Pt does not currently have a portal and education provided: Yes Insurance Coverage/Financial Issues Insurance: Medicare [facility] Medicare Supplement Care Team Visit Care Team Role Provider Type Alen Ceja MD MD [facility] STAFF PHYSICIAN Carmen Rogers Primary Care Provider NON-[facility] STAFF PHYSICIAN Shahid Barillas MD Emergency Provider [facility] STAFF PHYSICIAN Douglas Schmid Admit Provider NON-[facility] STAFF PHYSICIAN Attending Provider Discharge Potential Discharge Needs: PCP F/U Appt and Other (cardiology) Anticipated Barriers to Discharge: None Identified Patient/Family Education Needs: Review discharge instructions, discuss Ask Me Three Transportation: Private vehicle Plan: Anticipate Zoraida will be transferred to [facility] in [place] later this evening. She has a Fruit Raiser there who has agreed to accept her in transfer and a bed is available. The nursing cytotechnologist supervisor is working on securing transportation. CM will follow. Social Determinants of Health Screening Social Determinants of health last assessed in clinic: 02/28/25 Will the Patient Participate in the Screening?: Yes Do you worry about having a steady place to live?: no Problems where you live: no known problems In the past 12 months, have you had to go without electric, gas, oil or water in your home?: no 1. Within the past 12 months, we worried whether our food would run out before we got money to buy more.: Never true 2. Within the past 12 months, the food we bought just didn't last and we didn't have money to get more.: Never true Has lack of transportation kept you from medical appointments or from doing things needed for daily living?: no Has anyone in your life made you feel unsafe or unsupported?: no How hard is it for you to pay for the very basics like food, housing, medical care, and heating? Would you say it is:: Not hard at all Do you want help finding or keeping work or a job?: I do not need or want help If for any reason you need help with day-to-day activities such as bathing, preparing meals, shopping, managing finances, etc., do you get the help you need?: I don?t need any help How often do you feel lonely or isolated from those around you?: Never Do you speak a language other than Polish at home?: Yes Does the patient want assistance with any of the above?: No Health Related Social Needs Health related social needs: education (Z55.6) Health related social needs details: not applicable at this time. 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
[2025-02-28] MEDS: Losartan 50 MG TAB PO (09:15)
--- NOTE | 2025-02-28 14:48 | DSE_ITS ---
Date of service: 02/28/25 Time of Service: 14:49 DS: Diagnosis Discharge Diagnosis (1) Hypotension due to drugs: Status: Acute (2) Bradycardia: Status: Acute (3) Hypomagnesemia: Status: Acute (4) Acute hyperglycemia: Status: Acute (5) PAF (paroxysmal atrial fibrillation): Status: Chronic (6) Hypothyroidism (acquired): Status: Chronic (7) Hyperlipidemia: Status: Chronic (8) HTN (hypertension): Status: Chronic Discharge Plan Disposition Patient Disposition: Transfer-Acute Inpatient Care Specific Acute Inpt Facility: Other Condition: Stable Discharge Details Reason For Visit: hypotension w/bradycardia,PAF,hyperglycemia,CKD Admit Date/Time: 02/27/25 22:17 Admit Provider: Douglas Schmid Attending Provider: Douglas Schmid Primary Care Provider: Carmen Rogers [facility] Course Hospital Course: This is an 79-year-old female who presented with symptomatic bradycardia. Originally she was admitted to the [facility] floor but did have 1 more episode of symptomatic bradycardia with a heart rate down into the 30s. At that point the patient was transferred to the ICU for closer monitoring. On the I did get in touch with the patient's agricultural produce washer Dr. Arsenio Matute who graciously accepted the patient in transfer to [facility] in [place]. At this point, we are trying to arrange transportation as the patient will need ACLS coverage during her transfer. Per my discussion with the transfer center they are doing a bed with report and will most likely have a bed tonight. This transfer is not urgent but is appropriate in regards to continuity of care as well as the fact that I presented the case to [facility] who did not accept the patient in transfer. The reason for not accepting was that the patient continued to improve once her beta-blockade had stopped this does seem reasonable at least from a medical perspective. In regards to her diagnostic information she does have an elevated MCV at 99 and may consider checking a B12 and folate level as well as iron TIBC at the discretion of the attending physician. She was also noted to have an elevated BUN to creatinine ratio at 58 and 1.8 respectively. Will consider Hemoccult checks but will defer once again to the attending. On admission her magnesium was 1.7 but repeat magnesium level after repletion was 2.4. She did have mild hypokalemia with a potassium of 2.4 which is also being repleted. Of note a flu and viral panel was ordered and was negative. Tick panel and Lyme panel have not been ordered. Once again would recommend at the discretion of her new attending. History of Present Illness Chief Complaint: Dizziness and weakness with near syncopal episode. Narrative: This is an 79-year-old female patient who receives most of her cardiology care in [place] seen Dr. Schulz who is a agricultural produce washer. She has chronically been on metoprolol and flecainide with only rare atrial fibrillation which would have a heart rate in the 110-120 range by her watch and phone monitoring. She is very sensitive to her atrial fibrillation and it is scheduled for an ablation in April 2025. She had a near syncopal episode while shopping with her friend I did not want to be seen in the ED but was encouraged by her friend go to the emergency room for evaluation with patient arriving via EMS. She continued to have dizziness and in the ED was found to have a junctional bradycardia. She did have paroxysmal atrial fibrillation with a controlled rate and was not severely hypotensive but actually was hypertensive compared to her baseline. She was given the very small dose of Toprol tartrate just after being admitted to the floor and began to have severe bradycardia below 40 sometimes dipping below 30 without symptoms of hypotension while lying in bed but the patient could feel her heart skipping. She had no chest pain. She denied any peripheral edema. No true syncopal episodes but has felt slightly dizzy in the past. She was transferred to the ICU from the [facility] because of her persistent bradycardia. Her metoprolol, flecainide and chlorthalidone were held. The patient blood pressure was well-controlled on only a half dose of losartan. She was essentially asymptomatic except for her sensations of slow heart rate and skipped beats with one 5-second pause seen on the telemetry. Her troponins were negative and her EKGs were unrevealing for ischemia. Plans are to observe off medications to washout her flecainide and metoprolol especially. The patient did return from a junctional bradycardia to the sinus bradycardia. Her forging roll operator and agricultural produce washer should be contacted in the morning to discuss possible further evaluation at [facility] which is a closer facility for consideration of pacemaker if needed. Her other chronic medical problems appear to be stable with patient's TSH slightly suppressed with a normal free T4. She is a full code. Assessment and plan (1) Hypotension due to drugs: Start date: 02/27/25 Status: Acute Assessment and plan: This is an 79-year-old lady with recent onset of dizziness and near syncopal episode the day of presentation presenting with bradycardia and hypotension with paroxysmal atrial fibrillation and planned ablation in April of this year with [place] agricultural produce washer. She is symptomatic with her atrial fibrillation and with her recent episode she appeared to have junctional bradycardia in the ED. She did respond to fluids and her medications were held with a hypertensive response in the ED. She did receive 1 small dose of metoprolol and had recurrent bradycardia but not hypotension. She will be observed overnight trending troponins and firewood cutter. She may need pacemaker. ZOLL pads are in place. Because of her persistent bradycardia into the 30s she was moved to the ICU level care. Metoprolol will be held along with flecainide and chlorthalidone. Echocardiogram will be updated. She is a full code. (2) Bradycardia: Start date: 02/27/25 Status: Acute Assessment and plan: Patient is having bradycardia secondary to her medications and there may be a conduction disorder though there is no true heart block. She now is in junctional bradycardia converting to sinus bradycardia off metoprolol entirely. Consult cardiology and her agricultural produce washer team in [place] as to need for immediate attention versus long-term potential for possible pacemaker. Also she needs her meds adjusted hoping not to allow paroxysmal atrial fibrillation and rapid response which may be problematic as well. (3) Hypomagnesemia: Start date: 02/28/25 Status: Acute Assessment and plan: Replete with IV magnesium and follow-up lab. (4) Acute hyperglycemia: Start date: 02/27/25 Status: Acute Assessment and plan: Patient has glucose measurements over 200 and will be on glucometer measurements before meals and at bedtime with sensitive sliding scale coverage while hospitalized. She has no history of diabetes. (5) PAF (paroxysmal atrial fibrillation): Status: Chronic Assessment and plan: Patient states that she has only 13 to 15% atrial fibrillation on her heart monitoring with her watch. She does have planned ablation in April of this year. She may need more immediate attention from her team in [place] with her present symptoms and bradycardia. (6) Hypothyroidism (acquired): Status: Chronic Assessment and plan: Continue outpatient supplement. This appears to be stable. (7) Hyperlipidemia: Status: Chronic Assessment and plan: Continue outpatient medical therapy. (8) HTN (hypertension): Status: Chronic Assessment and plan: Hold all of her medicines except for losartan which will be half dose. Gentle IV hydration has taken place. Home Meds and New Rx's Prescriptions: No Action atorvastatin 80 mg tablet 80 mg PO QPM chlorthalidone 50 mg tablet 25 mg PO BID levothyroxine 50 mcg tablet 50 mcg PO DAILY flecainide 50 mg tablet 75 mg PO BID Patient Comments: TAKE 1 & 1/2 (ONE & ONE-HALF) TABLETS BY MOUTH EVERY 12 HOURS. INCREASE IN DOSE omeprazole 20 mg capsule,delayed release(DR/EC) 20 mg PO DAILY zolpidem 10 mg tablet 10 mg PO QHS PRN Patient Comments: TAKE 1 TABLET BY MOUTH AT BEDTIME NEEDED losartan 100 mg tablet 100 mg PO DAILY metoprolol tartrate 25 mg tablet 25 mg PO BID Patient Comments: TAKE 1 TABLET BY MOUTH TWICE DAILY Eliquis 5 mg tablet 5 mg PO BID Patient Comments: TAKE 1 TABLET BY MOUTH TWICE DAILY Discharge Instructions Activity:: Activity as Tolerated Equipment/Supplies:: No Equipment Needed Diet:: As Tolerated Discharge Orders Discharge Orders: Discharge Order (Routine); Ordered 02/28/25 Ordered By: Alen Ceja DS: Summary Time Spent with Patient providing and/or coordinating discharge services: Greater than 30 minutes Status at Discharge Functional status at discharge: independent ambulation Overall status at discharge: patient is back to baseline Mental Status: mental status grossly normal Speech and Movement: speech and movement normal Mood: congruent mood Affect: normal affect Quality:SDOH Health Related Social Needs: Health related social needs education Health related social needs details not applicable at this time. Health related social needs details: not applicable at this time. Exam Narrative Exam Narrative: NCAT MMM EOMI NO RESPIRATORY DISTRESS AAO GIVES LINEAR HISTORY PIV IN RIGH ARM HR APPX 60 Psych Mental Status: mental status grossly normal Speech and Movement: speech and movement normal Mood: congruent mood Affect: normal affect DS: Data Vitals/I&O Vitals and I&O: Vital Signs Temperature 36.6 C 02/28/25 11:15 Temperature Source Temporal Artery Scan 02/28/25 11:15 Pulse 58 L 02/28/25 12:00 Pulse Rhythm Irregular 02/27/25 22:59 Pulse 58 L 02/28/25 12:00 Respiratory Rate 16 02/28/25 12:00 Respiratory Effort Normal 02/28/25 02:45 Respiratory Depth Normal 02/28/25 02:45 Respiratory Pattern Normal 02/28/25 02:45 Blood Pressure 164/73 H 02/28/25 11:01 Blood Pressure Mean 99 02/28/25 11:01 Blood Pressure Position Supine 02/28/25 02:45 Pulse Oximetry 96 02/28/25 12:00 Oxygen Delivery Method Room Air 02/28/25 11:15 Oxygen Flow Rate 0 02/28/25 11:15 Pain Level 0 02/28/25 02:45 Intake & Output 02/27/25 02/28/25 02/28/25 23:59 11:59 23:59 Intake Total 1999 50 / 50 Output Total 100 / 100 400 / 400 Balance 1900 / 1900 -350 / -350 Weight 93.2 kg 96.6 kg Intake: IV 1999 50 / 50 Output: Urine 100 / 100 400 / 400 Other: Urine Color Yellow Yellow Urine Appearance Clear Clear Urine Odor Normal None Data Completed and Pending Labs on day of discharge: Labs from last 24 hours 02/28/25 02/28/25 02/27/25 07:17 06:21 22:23 WBC 8.56 RBC 3.61 L Hgb 11.5 Hct 35.7 L MCV 99 H MCH 31.9 MCHC 32.2 RDW 12.7 Plt Count 194 MPV 10.4 Immature Gran % Neutrophils % Lymphocytes % Monocytes % Eosinophils % Basophils % Nucleated RBC % Absolute Neutrophils Absolute Lymphocytes Absolute Monocytes Absolute Eosinophils Absolute Basophils Sodium 142 Potassium 3.4 L Chloride 107 Carbon Dioxide 24.6 Anion Gap 10.4 BUN 50 H Creatinine 1.8 H Est GFR (CKD-EPI 2020) 28.13 Glucose 139 H Calcium 9.2 Magnesium 2.4 Total Bilirubin 0.3 AST 26 ALT 29 Alkaline Phosphatase 69 Troponin I 17 Total Protein 6.2 L Albumin 3.1 L TSH COVID-19 Source Nasopharynx SARS-CoV-2 (PCR) Negative Influenza Type A (PCR) Negative Influenza Type B (PCR) Negative RSV (PCR) Negative 02/27/25 02/27/25 02/27/25 19:36 17:38 16:37 WBC 10.79 RBC 4.12 Hgb 13.2 Hct 41.2 MCV 100 H MCH 32.0 MCHC 32.0 RDW 12.9 Plt Count 252 MPV 10.1 Immature Gran % 0.8 Neutrophils % 74.4 Lymphocytes % 17.2 Monocytes % 6.5 Eosinophils % 0.7 Basophils % 0.4 Nucleated RBC % 0.0 Absolute Neutrophils 8.02 H Absolute Lymphocytes 1.86 Absolute Monocytes 0.70 Absolute Eosinophils 0.08 Absolute Basophils 0.04 Sodium 140 Potassium 3.8 Chloride 103 Carbon Dioxide 20.6 L Anion Gap 16.4 H BUN 55 H Creatinine 2.3 H Est GFR (CKD-EPI 2020) 20.96 Glucose 224 H Calcium 9.8 Magnesium 1.7 L Total Bilirubin 0.4 AST 28 ALT 36 Alkaline Phosphatase 83 Troponin I 17 16 16 Total Protein 7.4 Albumin 3.6 TSH 2.04 COVID-19 Source SARS-CoV-2 (PCR) Influenza Type A (PCR) Influenza Type B (PCR) RSV (PCR) PFSH All Active Problems (Updated 02/28/25 @ 14:45 by Shahid Barillas MD) Acute renal failure (Acute) Acute hyperglycemia (Acute) Hypomagnesemia (Acute) Hypotension due to drugs (Acute) PAF (paroxysmal atrial fibrillation) (Chronic) HTN (hypertension) (Chronic) Hyperlipidemia (Chronic) Hypothyroidism (acquired) (Chronic) Syncope (Chronic) Bradycardia (Acute) 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 Social History Smoking/Tobacco Use Status: Never Smoking risk assessment performed?: Yes Alcohol Intake: current Alcohol Intake frequency: a few times a week Substance use type: does not use Housing: house Do you feel safe at home: Yes Do you feel safe in your relationship?: Yes Time Spent with Patient Time Spent with Patient: 70-84 minutes4 Time was spent: preparing to see the patient(eg.review tests), obtaining and/or reviewing separately otained hiistory, ordering medications,tests, procedures, referring, communicating with other health personal care attendant, indepentently interpreting results, counseling the patient and care coordination
== END 2025-02-28 15:40 | disposition short-term general hospital (02) | DRG 312 ==
LOC: ER 22:10 → MS 22:58 → ICU 02-28 04:46
PROVIDERS: Admitting Provider Family Medicine; Emergency Provider Emergency Medicine Emergency Medical Services; PCP Internal Medicine; Responsible Provider Hospitalist; Visit Provider Family Medicine
DX: I95.2 Hypotension due to drugs (principal); E83.42 Hypomagnesemia; I48.0 Paroxysmal atrial fibrillation; R73.9 Hyperglycemia, unspecified; E03.9 Hypothyroidism, unspecified; E78.5 Hyperlipidemia, unspecified; I10 Essential (primary) hypertension; I49.8 Other specified cardiac arrhythmias; T44.7X5A Adverse effect of beta-adrenoreceptor antagonists, initial encounter; T50.2X5A Adverse effect of carbonic-anhydrase inhibitors, benzothiadiazides and other diuretics, initial encounter; E87.6 Hypokalemia; R53.1 Weakness; Z79.01 Long term (current) use of anticoagulants
CPT/HCPCS: 00123; 36415; 80053; 85027; 87637; 93005; 96360; 99291; 70450; 83735; 84443; 84484; 85025; 93010; 93306; 99223; 99239; J1815; J3475; J3490